=== PATIENT | male | born 1950 | race Caucasian/White ===

== ENCOUNTER 2017-04-08 11:29 | Inpatient (IN) | payer OTHER ==
[2017-04-07 11:06] VITALS: BMI 27.1
--- NOTE | 2017-04-08 09:23 | HP ---
[facility] - Past Medical History Allergies/Adverse Reactions: Allergies Allergy/AdvReac Type Severity Reaction Status Date / Time No Known Drug Allergies Allergy Verified 04/08/17 11:55 - Current Medications Current Medications: Home Medications Medication Instructions Recorded Losartan 50Mg/Hctz 12.5MG [Hyzaar 2 tab PO DAILY 03/06/17 -] Oxycodone HCl/Acetaminophen 1 - 2 tab PO Q6H #60 tab MDD 6 04/08/17 [Percocet 5-325 mg Tablet -] [facility] Physical Exam - Physical Examination Extremities: Other
--- NOTE | 2017-04-08 09:25 | OP ---
Operative Note - Note: Estimated Blood Loss (mls): 0
--- NOTE | 2017-04-08 17:29 | HP ---
History & Physical Update - History History: No Change - Physical Physical: No Change - Assessment Assessment: No Change - Plan Plan: No Change
[2017-04-08] MEDS ORDERED: PROPOFOL 20 ML ONE ×2 (17:42)
[2017-04-08] MEDS ORDERED: ROCURONIUM BROMIDE 50 MG/5 ML VIAL ONE ×2 (17:42→19:56)
[2017-04-08] MEDS ORDERED: ERTAPENEM SODIUM 1 GM in SODIUM CHLORIDE 50 ML IVPB ONE (17:43)
[2017-04-08] MEDS ORDERED: LACTATED RINGERS SOLUTION 1,000 ML IV SCH ×2 (17:45→21:45)
[2017-04-08] MEDS ORDERED: HYDROmorphone *PCA* 10MG/50ML DISP.SYRIN PCA SCH (18:00)
[2017-04-08] MEDS ORDERED: DESFLURANE GAS 240 ML BOTTLE IH ONE (18:14)
[2017-04-08] MEDS ORDERED: LIDOCAINE HCL/PF 2% SDV 5ML VIAL ONE (18:41)
[2017-04-08] MEDS ORDERED: ceFAZolin SODIUM 1 GM VIAL IVPB ONE (18:57)
[2017-04-08] MEDS ORDERED: BUPIVACAINE HCL/PF 0.5% (5MG/ML) 10 ML VIAL IJ ONE (19:03)
[2017-04-08] MEDS ORDERED: ceFAZolin SODIUM 1 GM VIAL ONE (19:10)
[2017-04-08] MEDS ORDERED: MIDAZOLAM HCL 2 MG/2 ML SINGLE DOSE VIAL ONE (19:10)
[2017-04-08] MEDS ORDERED: NEOSTIGMINE METHYLSULFATE 0.5 MG/ML - 10 ML MDV ONE (20:33)
[2017-04-08] MEDS ORDERED: GLYCOPYRROLATE 0.2 MG/1 ML VIAL ONE ×2 (20:34→20:37)
[2017-04-08] MEDS ORDERED: KETOROLAC TROMETHAMINE 30 MG/1 ML VIAL ONE (21:10)
--- NOTE | 2017-04-08 21:40 | OP ---
Operative Note - Note: Operative Date: 04/08/17 Pre-Operative Diagnosis: incisional hernia Operation: robotic assisted laparoscopic incisional hernia repair with mesh Post-Operative Diagnosis: Same as Pre-op Surgeon: Qasim Gudino Manufacturing Analyst: Teri Hussein Anesthesiologist/REINSPECTOR: Adolfo Guthrie Anesthesia: General Estimated Blood Loss (mls): 5 Fluid Volume Replaced (mls): 2,700 Operative Report Dictated: Yes
--- NOTE | 2017-04-08 21:43 | SURG ---
Surgery Crematory Operator Note Crematory Operator: Teri Hussein PA-C Date of Service: 04/08/17 Diagnosis: incisional hernia Procedure: robotic assisted laparoscopic incisional hernia repair with mesh I was present for the entirety of the operative procedure. For further detail, please refer to operative report. Visit type - Case Type Case Type: Scheduled Admission - New patient This patient is new to me today: Yes Date on this admission: 04/08/17
[2017-04-08] MEDS ORDERED: ONDANSETRON 4 MG/2 ML VIAL IVPUSH PRN (21:44)
[2017-04-08] MEDS ORDERED: PROMETHAZINE HCL 25 MG/1 ML VIAL IVPUSH PRN (21:44)
[2017-04-08] MEDS ORDERED: ACETAMINOPHEN 1000 MG/100 ML VIAL (NON FORMULARY) IVPB PRN (21:45)
[2017-04-08] MEDS ORDERED: ACETAMINOPHEN INJECTION 100 ML IVPB ONE (22:08)
[2017-04-09] MEDS: oxyCODONE HCL 5 MG TABLET PO PRN ×2 (00:29→08:58)
[2017-04-09] MEDS ORDERED: ENOXAPARIN NA (PORCINE) 40 MG/0.4 ML DISP.SYRIN SQ SCH (04:00)
--- NOTE | 2017-04-09 08:45 | PN ---
Progress Note (short form) - Note Progress Note: Patient seen and examined. Patient states he has a small amount of abdominal pain. He is tolerating his diet, denies fever, chills, nausea, vomiting. Last Vital Signs Temp Pulse Resp BP Pulse Ox 98.6 F 77 20 135/85 99 04/09/17 05:42 04/09/17 05:42 04/09/17 05:42 04/09/17 05:42 04/08/17 22:35 Exam: Gen: NAD, pleasant and cooperative Neuro: Alert and oriented Cardio: RRR Resp: CTA Abd: Soft, nondistended, mild incisional tenderness, incisions c/d/i, abdominal binder in place LE: soft, calves nontender Skin: warm, dry POD#1 s/p robotic assisted laparoscopic incisional hernia repair with mesh Regular diet, pain control with oral pain medications Patient to be discharged home, pain Rx sent to pharmacy, pt to follow-up for post-op appointment with Dr. Gudino
[2017-04-09 09:11] VITALS: BP 126/83; TEMP 98
--- NOTE | 2017-04-09 10:50 | PN ---
Progress Note (short form) - Note Progress Note: Post op day #1.S/P Robotic laproscopic inguinal hernia repair under GA uneventful.Patient stable.No any anesthesia related problem.Patient DC from the anesthesia care.
[2017-04-09 14:03] VITALS: PULSE 77
--- NOTE | 2017-04-11 13:39 | OP ---
DATE OF OPERATION: 04/08/2017 PROCEDURE: Robotic-assisted laparoscopic lysis of adhesions and multiple incisional hernias repaired with mesh. PREOPERATIVE DIAGNOSIS: Incisional hernias. POSTOPERATIVE DIAGNOSIS: Multiple incisional hernias and intraabdominal adhesions. SURGEON: Qasim Gudino MD MANAGER PROCESS IMPROVEMENT: ANA Jacobson ANESTHESIA: General endotracheal. FINDINGS ON PROCEDURE: This is a 67-year-old male who presents with midline abdominal bulges following surgery for diverticular disease in year 1999. On physical examination, patient has a 4-cm bulge at the superior portion of the midline scar at the gastric region. Also, has some questionable defect at the umbilicus at the level of the midline scar. So, patient was advised elective incision hernia repair, and consent was obtained after discussing the risks, benefits, and alternatives of the procedure. DESCRIPTION OF PROCEDURE: Patient was brought to the operating room and placed in supine position. General endotracheal anesthesia was administered. A roll was placed in the patients left flank. The abdomen was prepped and draped in the usual sterile fashion. Using the Veress needle technique, the peritoneal cavity was entered via an 8- mm left subcostal incision. Pneumoperitoneum was then established. This was followed by insertion of a 3D laparoscope, and the peritoneal cavity was carefully inspected. It was noted to be free of inadvertent injury. Note was made of multiple adhesions of the omentum, the small bowel through the previous midline laparotomy wound. Two 8-mm ports were inserted at the left flank posterior to the anterior axillary line 7 mm away from each other, one at the level of the umbilicus and one at the left lower quadrant under direct vision. Afterwards, the target organ was set and the robotic arms were docked. A fenestrated bipolar was inserted at the left lower quadrant port, and the EndoWrist anahy was inserted at the left lower quadrant at the left upper quadrant port. This was connected to monopolar cautery. The undersigned then scrubbed out to commence the consult part of the procedure. The omental adhesions as well as the small bowel lesions of the posterior abdominal wall were taken down sharply using the EndoWrist anahy. After this was taken down, multiple defects ranging from 2 cm to 4 cm in size was noted, the largest being at the umbilicus. After taking down the adhesions, the defects were apposed with continuous V-Loc No. 1 non-absorbable suture. This was followed by deployment of intraperitoneal only mesh using Ventralight ST 6 x 4 inch mesh. The Ventralight ST was anchored to the posterior abdominal wall with continuous V-Loc 2-0 absorbable sutures. After this was completed and the repair was deemed satisfactory, the pneumoperitoneum was evacuated and the ports were removed. The wounds were closed with subcuticular Biosyn 4-0 sutures reinforced with Dermabond. The patient was successfully extubated and transferred to the post-anesthesia care unit in satisfactory condition. ESTIMATED BLOOD LOSS: About 3 mL. WOUND CLASS: Clean. The patient received 2 g of Ancef prior to the start of the procedure. Zee [id number] MTDD
== END 2017-04-09 14:23 | disposition home or self-care (01) | DRG 355 ==
LOC: JASU-SURG 11:29 → JSAMEDAYSX 17:36 → J6S 23:12
PROVIDERS: ADMIT Surgery; ATTEND Surgery
PROC: 3E0M05Z Introduction of Adhesion Barrier into Peritoneal Cavity, Open Approach (ICD-10-PCS; 2017-04-08)
PROC: 8E0W4CZ Robotic Assisted Procedure of Trunk Region, Percutaneous Endoscopic Approach (ICD-10-PCS; 2017-04-08)
PROC: 0WUF4JZ Supplement Abdominal Wall with Synthetic Substitute, Percutaneous Endoscopic Approach (ICD-10-PCS; principal; 2017-04-08 13:45)
DX: K43.2 Incisional hernia without obstruction or gangrene (principal); K66.0 Peritoneal adhesions (postprocedural) (postinfection)
CPT/HCPCS: 94760

== ENCOUNTER 2017-04-11 00:37 | Inpatient (IN) | payer OTHER ==
[2017-04-11 01:22] VITALS: BMI 25.0
[2017-04-11 02:33] LABS: BASOPHIL 0.5 % (0-2.0); EOSINOPHIL 13.3 % (0-4.5); MCH 26.2 pg (25.7-33.7); MCHC 32.4 g/dl (32.0-35.9); MEAN PLT VOLUME 8.5 fl (7.5-11.1); NEUTROPHILS 65.3 % (42.8-82.8); PLATELET COUNT 232 K/MM3 (134-434); RDW 17.3 % (11.9-15.9); WHITE BLOOD COUNT 6.9 K/mm3 (4.0-10.0)
[2017-04-11 02:48] LABS: INR 1.09 (0.82-1.09)
[2017-04-11 02:50] LABS: ACTIVATED PTT 29.2 SECONDS (26.9-34.4)
[2017-04-11 02:55] LABS: ALBUMIN 3.8 g/dl (3.4-5.0); ANION GAP 9 (8-16); BILIRUBIN,TOTAL 0.7 mg/dL (0.2-1.0); CALCIUM 8.8 mg/dL (8.5-10.1); CO2 29 mmol/L (21-32); CREATININE 0.9 mg/dL (0.7-1.3); GLUCOSE,RANDOM 116 mg/dL (74-106); SGPT/ALT 18 U/L (12-78); TOT PROT 7.5 g/dl (6.4-8.2)
[2017-04-11] MEDS ORDERED: ASPIRIN 81 MG CHEWABLE TABLETS PO ONE (02:56)
[2017-04-11] MEDS ORDERED: NITROGLYCERIN SUBLINGUAL 1/150 0.4 MG TAB SL ONE (02:56)
[2017-04-11] MEDS ORDERED: SODIUM CHLORIDE 1,000 ML IV STA (02:56)
--- NOTE | 2017-04-11 02:56 | PDOC ---
History of Present Illness - General History Source: Patient Exam Limitations: No Limitations - History of Present Illness Initial Comments: 04/11/17 03:00 The patient is a 67 year old male with a significant past medical history of HTN and asthma who presents to the ED with complaints of chest pain since earlier today. The patient comes into the ED s/p hernia repair on Thursday. He stayed one night in the hospital and was discharged on with Losartan and percocet. Patient reports a sudden onset of left sided sharp chest pain radiating to his left arm. He also reports dizziness, blurry vision, headache and decreased urinary output associated with present symptoms. Surgical hx: Colon resection (several years ago) Family hx: Diabetes, HTN <Erica Plummer - Last Filed: 04/11/17 02:59> - General History Source: Patient Exam Limitations: No Limitations <Cade Mcmullen - Last Filed: 04/11/17 06:45> <Brooke Mascorro - Last Filed: 04/11/17 10:40> <Mame Reece - Last Filed: 04/11/17 13:21> - General Chief Complaint: Lightheaded Stated Complaint: PAIN/DIZZINESS Time Seen by Provider: 04/11/17 01:52 Past History <Erica Plummer - Last Filed: 04/11/17 02:59> - Past Medical History Anemia: No Asthma: No Cancer: No Cardiac Disorders: No CVA: No COPD: No CHF: No Dementia: No Diabetes: No GI Disorders: No Disorders: No HTN: Yes ('SOMETIMES") Hypercholesterolemia: No Liver Disease: No Seizures: No Thyroid Disease: No - Surgical History Abdominal Surgery: Yes (COLON SURGERY 1999 (DIVERTICULOSIS)) - Psycho/Social/Smoking Cessation Hx Suicidal Ideation: No Smoking History: Never smoked Have you smoked in the past 12 months: No Information on smoking cessation initiated: No Hx Alcohol Use: No Drug/Substance Use Hx: No Substance Use Type: Alcohol Hx Substance Use Treatment: No <Cade Mcmullen - Last Filed: 04/11/17 06:45> <Brooke Mascorro - Last Filed: 04/11/17 10:40> <Mame Reece - Last Filed: 04/11/17 13:21> - Past Medical History Allergies/Adverse Reactions: Allergies Allergy/AdvReac Type Severity Reaction Status Date / Time No Known Drug Allergies Allergy Verified 04/11/17 01:20 Home Medications: Ambulatory Orders Losartan 50Mg/Hctz 12.5MG [Hyzaar -] 2 tab PO DAILY 03/06/17 Oxycodone HCl/Acetaminophen [Percocet 5-325 mg Tablet -] 1 - 2 tab PO Q6H #60 tab MDD 6 04/08/17 Review of Systems - Review of Systems Able to Perform ROS?: Yes Comments:: 04/11/17 03:00 GENERAL/CONSTITUTIONAL: No fever or chills. No weakness. HEAD, EYES, EARS, NOSE AND THROAT: No change in vision. No ear pain or discharge. No sore throat. CARDIOVASCULAR: + chest pain No shortness of breath. RESPIRATORY: No cough, wheezing, or hemoptysis. GASTROINTESTINAL: No nausea, vomiting, diarrhea or constipation. GENITOURINARY: + decreased urinary output. No dysuria, frequency. MUSCULOSKELETAL: No joint or muscle swelling or pain. No neck or back pain. SKIN: No rash NEUROLOGIC: + headache, dizziness, blurry vision. No vertigo, loss of consciousness, or change in strength/sensation. ENDOCRINE: No increased thirst. No abnormal weight change. HEMATOLOGIC/LYMPHATIC: No anemia, easy bleeding, or history of blood clots. ALLERGIC/IMMUNOLOGIC: No hives or skin allergy. All Other Systems: Reviewed and Negative <Erica Plummer - Last Filed: 04/11/17 02:59> *Physical Exam - Vital Signs Last Vital Signs Temp Pulse Resp BP Pulse Ox 98.6 F 116 H 20 175/117 96 04/11/17 01:20 04/11/17 01:20 04/11/17 01:20 04/11/17 01:20 04/11/17 01:20 - Physical Exam Comments: 04/11/17 03:00 GENERAL: Awake, alert, and fully oriented, in no acute distress HEAD: No signs of trauma EYES: PERRLA, EOMI, sclera anicteric, conjunctiva clear ENT: Auricles normal inspection, hearing grossly normal, nares patent, oropharynx clear without exudates. Moist mucosa NECK: Normal ROM, supple, no lymphadenopathy, JVD, or masses LUNGS: Breath sounds equal, clear to auscultation bilaterally. No wheezes, and no crackles HEART: Regular rate and rhythm, normal S1 and S2, no murmurs, rubs or gallops ABDOMEN: Soft, nontender, normoactive bowel sounds. No guarding, no rebound. No masses EXTREMITIES: Normal range of motion, no edema. No clubbing or cyanosis. No cords, erythema, or tenderness NEUROLOGICAL: Normal speech SKIN: Warm, Dry, normal turgor, no rashes or lesions noted. <Erica Plummer - Last Filed: 04/11/17 02:59> - Vital Signs Last Vital Signs Temp Pulse Resp BP Pulse Ox 98.6 F 116 H 20 175/117 96 04/11/17 01:20 04/11/17 01:20 04/11/17 01:20 04/11/17 01:20 04/11/17 01:20 <Cade Mcmullen - Last Filed: 04/11/17 06:45> - Vital Signs Last Vital Signs Temp Pulse Resp BP Pulse Ox 98.6 F 86 18 154/114 100 04/11/17 01:20 04/11/17 08:11 04/11/17 08:11 04/11/17 08:11 04/11/17 08:11 <Brooke Mascorro - Last Filed: 04/11/17 10:40> - Vital Signs Last Vital Signs Temp Pulse Resp BP Pulse Ox 98.6 F 86 18 154/114 100 04/11/17 01:20 04/11/17 08:11 04/11/17 08:11 04/11/17 08:11 04/11/17 08:11 <Mame Reece - Last Filed: 04/11/17 13:21> Heart Score/ECG Review #1 ECG reviewed & interpreted by me at: 02:50 04/11/17 03:35 NSR 90, left axis deviation, no std/adan, QTC 437 msec <Cade Mcmullen - Last Filed: 04/11/17 06:45> ED Treatment Course - LABORATORY CBC & Chemistry Diagram: 04/11/17 02:19 04/11/17 02:19 - ADDITIONAL ORDERS Additional order review: 04/11/17 02:19 RBC 4.86 MCV 81.0 MCHC 32.4 RDW 17.3 H MPV 8.5 Neutrophils % 65.3 Lymphocytes % 13.0 Monocytes % 7.9 Eosinophils % 13.3 H Basophils % 0.5 <Erica Plummer - Last Filed: 04/11/17 02:59> - LABORATORY CBC & Chemistry Diagram: 04/11/17 02:19 04/11/17 02:19 - ADDITIONAL ORDERS Additional order review: 04/11/17 02:19 RBC 4.86 MCV 81.0 MCHC 32.4 RDW 17.3 H MPV 8.5 Neutrophils % 65.3 Lymphocytes % 13.0 Monocytes % 7.9 Eosinophils % 13.3 H Basophils % 0.5 - RADIOLOGY Radiology Studies Ordered: Category Date Time Status CHEST X-RAY PORTABLE* [RAD] Stat Radiology 04/11/17 02:25 Ordered <Cade Mcmullen - Last Filed: 04/11/17 06:45> - LABORATORY CBC & Chemistry Diagram: 04/11/17 02:19 04/11/17 02:19 - ADDITIONAL ORDERS Additional order review: Laboratory Results 04/11/17 04/11/17 04/11/17 02:19 02:19 02:19 INR 1.09 PTT (Actin FS) 29.2 Sodium 136 Potassium 3.7 Chloride 98 Carbon Dioxide 29 Anion Gap 9 BUN 19 H Creatinine 0.9 Creat Clearance w eGFR > 60 Random Glucose 116 H Calcium 8.8 Total Bilirubin 0.7 AST 19 ALT 18 Alkaline Phosphatase 59 Creatine Kinase 191 Creatine Kinase Index CK-MB (CK-2) < 1.000 CK-MB (CK-2) Rel Index Cancelled Troponin I < 0.02 Total Protein 7.5 Albumin 3.8 04/11/17 02:19 RBC 4.86 MCV 81.0 MCHC 32.4 RDW 17.3 H MPV 8.5 Neutrophils % 65.3 Lymphocytes % 13.0 Monocytes % 7.9 Eosinophils % 13.3 H Basophils % 0.5 - Medications Given in the ED: ED Medications Discontinued Medications Generic Name Dose Route Start Last Admin Trade Name Freq PRN Reason Stop Dose Admin Aspirin 324 mg 04/11/17 02:56 04/11/17 03:05 Asa - PO 04/11/17 02:57 324 mg ONCE ONE Administration Sodium Chloride 1,000 mls @ 1,000 mls/hr 04/11/17 02:56 04/11/17 03:06 Normal Saline - IV 04/11/17 03:55 1,000 mls/hr ASDIR STA Administration Ketorolac Tromethamine 30 mg 04/11/17 03:57 04/11/17 04:18 Toradol Injection - IVPUSH 04/11/17 03:58 30 mg ONCE ONE Administration Nitroglycerin 0.4 mg 04/11/17 02:56 04/11/17 03:05 Nitrostat - SL 04/11/17 02:57 0.4 mg ONCE ONE Administration <Brooke Mascorro - Last Filed: 04/11/17 10:40> - LABORATORY CBC & Chemistry Diagram: 04/11/17 02:19 04/11/17 02:19 - ADDITIONAL ORDERS Additional order review: Laboratory Results 04/11/17 04/11/17 04/11/17 02:19 02:19 02:19 INR 1.09 PTT (Actin FS) 29.2 Sodium 136 Potassium 3.7 Chloride 98 Carbon Dioxide 29 Anion Gap 9 BUN 19 H Creatinine 0.9 Creat Clearance w eGFR > 60 Random Glucose 116 H Calcium 8.8 Total Bilirubin 0.7 AST 19 ALT 18 Alkaline Phosphatase 59 Creatine Kinase 191 Creatine Kinase Index CK-MB (CK-2) < 1.000 CK-MB (CK-2) Rel Index Cancelled Troponin I < 0.02 Total Protein 7.5 Albumin 3.8 04/11/17 02:19 RBC 4.86 MCV 81.0 MCHC 32.4 RDW 17.3 H MPV 8.5 Neutrophils % 65.3 Lymphocytes % 13.0 Monocytes % 7.9 Eosinophils % 13.3 H Basophils % 0.5 - Medications Given in the ED: ED Medications Discontinued Medications Generic Name Dose Route Start Last Admin Trade Name Freq PRN Reason Stop Dose Admin Aspirin 324 mg 04/11/17 02:56 04/11/17 03:05 Asa - PO 04/11/17 02:57 324 mg ONCE ONE Administration Sodium Chloride 1,000 mls @ 1,000 mls/hr 04/11/17 02:56 04/11/17 03:06 Normal Saline - IV 04/11/17 03:55 1,000 mls/hr ASDIR STA Administration Ketorolac Tromethamine 30 mg 04/11/17 03:57 04/11/17 04:18 Toradol Injection - IVPUSH 04/11/17 03:58 30 mg ONCE ONE Administration Nitroglycerin 0.4 mg 04/11/17 02:56 04/11/17 03:05 Nitrostat - SL 04/11/17 02:57 0.4 mg ONCE ONE Administration <Mame Reece - Last Filed: 04/11/17 13:21> Medical Decision Making - Medical Decision Making 04/11/17 03:36 A portion of this note was documented by scribe services under my direction. I have reviewed the details of the note, within reason, and agree with the documentation with the following case summary and management plan written by me. Patient treated in the ED. Nursing notes are reviewed and incorporated into the medical decision-making. Vital signs reviewed. Peripheral IV access obtained by the nurse, laboratory studies are drawn and sent, reviewed and interpreted by myself. Vital Signs Temp Pulse Resp BP Pulse Ox 98.6 F 116 H 20 175/117 96 04/11/17 01:20 04/11/17 01:20 04/11/17 01:20 04/11/17 01:20 04/11/17 01:20 67 year old male with past medical history of HTN presents to the emergency department for chest pain. The patient recently had an abdominal hernia repair with mesh placement several days ago with no reported complications. Patient reported waking up with left-sided cramping pressure left-sided chest pain with radiation to left arm and associated shortness of breath. Denies nausea, vomiting, diaphoresis. States that the component is somewhat pleuritic. Patient reports that he believed he had a stress test in preparation for his surgery which he thinks is negative. Patient follows Dr. Marlon Yang. We'll need to rule out myocardial infarction. Patient was given aspirin nitroglycerin with minimal relief. Initial troponin is negative patient is awaiting a CAT scan the chest to rule out PE. Patient continue chest pain and should be considered for potential admission to the hospital further evaluation. <Cade Mcmullen - Last Filed: 04/11/17 06:45> - Medical Decision Making 04/11/17 08:[address] Muro. 04/11/17 09:[address] Muro 04/11/17 09:[address] Muro to her mobile phone. Left voicemail. 04/11/17 10:[address] Muro 04/11/17 10:[address] Muro. <Brooke Mascorro - Last Filed: 04/11/17 10:40> - Medical Decision Making 04/11/17 10:53 Had some technical difficulty reaching Dr. Muro through the service, however, we have now discussed case. We will admit to tele for further workup of the chest pain, as he is still having it intermittently. PE study was negative. <Mame Reece - Last Filed: 04/11/17 13:21> *DC/Admit/Observation/Transfer - Attestations Scribe Attestion: 04/11/17 03:00 Documentation prepared by Erica Plummer, acting as medical language specialist for Cade Mcmullen MD <Erica Plummer - Last Filed: 04/11/17 02:59> <Cade Mcmullen - Last Filed: 04/11/17 06:45> <Brooke Mascorro - Last Filed: 04/11/17 10:40> - Discharge Dispostion Admit: Yes <Mame Reece - Last Filed: 04/11/17 13:21> Diagnosis at time of Disposition: Chest pain Qualifiers: Chest pain type: unspecified Qualified Code(s): R07.9 - Chest pain, unspecified - Discharge Dispostion Condition at time of disposition: Stable - Referrals
[2017-04-11 02:58] LABS: ALK PHOS 59 U/L (45-117); TROPONIN I < 0.02 ng/ml (0.00-0.05)
[2017-04-11 03:02] LABS: SGOT/AST 19 U/L (15-37)
[2017-04-11] MEDS ORDERED: ASPIRIN 81 MG CHEWABLE TABLETS ONE (03:02)
[2017-04-11] MEDS ORDERED: NITROGLYCERIN SUBLINGUAL 1/150 0.4 MG TAB ONE (03:03)
[2017-04-11] MEDS ORDERED: KETOROLAC TROMETHAMINE 30 MG/1 ML VIAL IVPUSH ONE (03:57)
[2017-04-11] MEDS ORDERED: KETOROLAC TROMETHAMINE 30 MG/1 ML VIAL ONE (04:11)
[2017-04-11] MEDS ORDERED: OXYCODONE/APAP 5/325MG COMBO TABLET PO ONE (12:14)
[2017-04-11] MEDS ORDERED: OXYCODONE/APAP 5/325MG COMBO TABLET ONE (12:41)
[2017-04-11] MEDS: LOSARTAN 50MG/HCTZ 12.5MG 1 TAB (FP) PO SCH ×2 (21:19→21:22)
[2017-04-11 22:11] LABS: TROPONIN I < 0.02 ng/ml (0.00-0.05)
[2017-04-11] MEDS: HEPARIN NA (PORCINE) 5,000 UNITS/ML 1ML VIAL SQ SCH (22:11)
[2017-04-11] MEDS: PANTOPRAZOLE 40 MG TABLET (FP) PO SCH (22:11)
--- NOTE | 2017-04-11 23:41 | HP ---
Admitting History and Physical - Smoking History Smoking history: Never smoked Have you smoked in the past 12 months: No - Alcohol/Substance Use Hx Alcohol Use: No Home Medications - Allergies Allergies/Adverse Reactions: Allergies Allergy/AdvReac Type Severity Reaction Status Date / Time No Known Drug Allergies Allergy Verified 04/11/17 01:20 - Home Medications Home Medications: Ambulatory Orders Losartan 50Mg/Hctz 12.5MG [Hyzaar -] 2 tab PO DAILY 03/06/17 Oxycodone HCl/Acetaminophen [Percocet 5-325 mg Tablet -] 1 - 2 tab PO Q6H #60 tab MDD 6 04/08/17 Physical Examination Vital Signs: Vital Signs Temperature 98.7 F 04/11/17 17:02 Pulse Rate 66 04/11/17 17:02 Respiratory Rate 20 04/11/17 17:02 Blood Pressure 132/77 04/11/17 17:02 O2 Sat by Pulse Oximetry (%) 100 04/11/17 17:02
[2017-04-12 07:09] LABS: BASOPHIL 0.4 % (0-2.0); EOSINOPHIL 19.1 % (0-4.5); MCH 26.9 pg (25.7-33.7); MEAN CELL VOLUME 81.7 fl (80-96); MEAN PLT VOLUME 8.5 fl (7.5-11.1); NEUTROPHILS 63.3 % (42.8-82.8); RDW 17.2 % (11.9-15.9); WHITE BLOOD COUNT 6.9 K/mm3 (4.0-10.0)
--- NOTE | 2017-04-12 07:17 | CON.CARD ---
Consult Consult Specialty:: Cardiology /dr. Navarro - History of Present Illness History of Present Illness: The patient is a 67 year old male with a significant past medical history of HTN and asthma who presents to the ED with complaints of chest pain since earlier today. The patient comes into the ED s/p hernia repair on Thursday. He stayed one night in the hospital and was discharged on with Losartan and percocet. Patient reports a sudden onset of left sided sharp chest pain radiating to his left arm. He also reports dizziness, blurry vision, headache and decreased urinary output associated with present symptoms. Surgical hx: Colon resection (several years ago) Family hx: Diabetes, HTN - History Source History Provided By: Patient, Medical Record - Past Medical History Cardio/Vascular: Yes: HTN Pulmonary: Yes: Asthma - Alcohol/Substance Use Hx Alcohol Use: No - Smoking History Smoking history: Never smoked Have you smoked in the past 12 months: No Home Medications - Allergies Allergies/Adverse Reactions: Allergies Allergy/AdvReac Type Severity Reaction Status Date / Time No Known Drug Allergies Allergy Verified 04/11/17 01:20 - Home Medications Home Medications: Ambulatory Orders Losartan 50Mg/Hctz 12.5MG [Hyzaar -] 2 tab PO DAILY 03/06/17 Oxycodone HCl/Acetaminophen [Percocet 5-325 mg Tablet -] 1 - 2 tab PO Q6H #60 tab MDD 6 04/08/17 Review of Systems - Review of Systems Constitutional: reports: No Symptoms Eyes: reports: No Symptoms HENT: reports: No Symptoms Neck: reports: No Symptoms Cardiovascular: reports: Chest Pain Gastrointestinal: reports: No Symptoms Genitourinary: reports: No Symptoms Breasts: reports: No Symptoms Reported Musculoskeletal: reports: No Symptoms Integumentary: reports: No Symptoms Neurological: reports: No Symptoms Endocrine: reports: No Symptoms Hematology/Lymphatic: reports: No Symptoms Psychiatric: reports: No Symptoms Vital Signs: Vital Signs Temperature 98.7 F 04/12/17 02:00 Pulse Rate 75 04/12/17 06:00 Respiratory Rate 20 04/12/17 06:00 Blood Pressure 127/95 04/12/17 06:00 O2 Sat by Pulse Oximetry (%) 100 04/11/17 17:02 Constitutional: Yes: Well Nourished, No Distress, Calm Eyes: Yes: WNL, Conjunctiva Clear, EOM Intact HENT: Yes: WNL, Atraumatic, Normocephalic Neck: Yes: WNL, Supple, Trachea Midline Respiratory: Yes: WNL, Regular, CTA Bilaterally Gastrointestinal: Yes: WNL, Normal Bowel Sounds Renal/: Yes: WNL Cardiovascular: Yes: WNL, Regular Rate and Rhythm Musculoskeletal: Yes: WNL Extremities: Yes: WNL Integumentary: Yes: WNL Neurological: Yes: WNL, Alert, Oriented ...Motor Strength: WNL Psychiatric: Yes: WNL, Alert, Oriented - Other Data Labs, Other Data: INR, PTT INR 1.09 (0.82-1.09) 04/11/17 02:19 Troponin, BNP 04/11/17 21:25 Troponin I < 0.02 Troponin, BNP 04/11/17 21:25 Troponin I < 0.02 Laboratory Tests 04/11/17 04/11/17 04/11/17 02:19 02:19 02:19 WBC 6.9 RBC 4.86 Hgb 12.7 Hct 39.3 MCV 81.0 MCH 26.2 MCHC 32.4 RDW 17.3 H Plt Count 232 MPV 8.5 Neutrophils % 65.3 Lymphocytes % 13.0 Monocytes % 7.9 Eosinophils % 13.3 H Basophils % 0.5 INR 1.09 PTT (Actin FS) 29.2 Sodium 136 Potassium 3.7 Chloride 98 Carbon Dioxide 29 Anion Gap 9 BUN 19 H Creatinine 0.9 Creat Clearance w eGFR > 60 Random Glucose 116 H Calcium 8.8 Total Bilirubin 0.7 AST 19 ALT 18 Alkaline Phosphatase 59 Creatine Kinase 191 Creatine Kinase Index CK-MB (CK-2) < 1.000 CK-MB (CK-2) Rel Index Troponin I < 0.02 Total Protein 7.5 Albumin 3.8 04/11/17 04/11/17 04/12/17 02:19 21:25 05:35 WBC 6.9 RBC 4.54 Hgb 12.2 Hct 37.1 MCV 81.7 MCH 26.9 MCHC 33.0 RDW 17.2 H Plt Count 157 D MPV 8.5 Neutrophils % 63.3 Lymphocytes % 9.2 D Monocytes % 8.0 Eosinophils % 19.1 H Basophils % 0.4 INR PTT (Actin FS) Sodium Potassium Chloride Carbon Dioxide Anion Gap BUN Creatinine Creat Clearance w eGFR Random Glucose Calcium Total Bilirubin AST ALT Alkaline Phosphatase Creatine Kinase 144 Creatine Kinase Index CK-MB (CK-2) CK-MB (CK-2) Rel Index Cancelled Troponin I < 0.02 Total Protein Albumin 04/12/17 05:35 WBC RBC Hgb Hct MCV MCH MCHC RDW Plt Count MPV Neutrophils % Lymphocytes % Monocytes % Eosinophils % Basophils % INR PTT (Actin FS) Sodium 138 Potassium 3.8 Chloride 101 Carbon Dioxide 26 Anion Gap 11 BUN 22 H Creatinine 1.0 Creat Clearance w eGFR > 60 Random Glucose 96 Calcium 8.4 L Total Bilirubin 0.7 AST 20 ALT 19 Alkaline Phosphatase 51 Creatine Kinase Creatine Kinase Index CK-MB (CK-2) CK-MB (CK-2) Rel Index Troponin I Total Protein 6.5 Albumin 3.3 L Imaging - Results Chest X-ray: Image Reviewed (no i/e) EKG: Image Reviewed (sr rep abn) Assessment/Plan Chest pain asthma plan r/o mi asa no bb due to asthma mibi st in am check echo and lipids
[2017-04-12 07:32] LABS: ALBUMIN 3.3 g/dl (3.4-5.0); ANION GAP 11 (8-16); CALCIUM 8.4 mg/dL (8.5-10.1); CO2 26 mmol/L (21-32); GLUCOSE,RANDOM 96 mg/dL (74-106); SGPT/ALT 19 U/L (12-78)
[2017-04-12 07:33] LABS: ALK PHOS 51 U/L (45-117); BILIRUBIN,TOTAL 0.7 mg/dL (0.2-1.0); TOT PROT 6.5 g/dl (6.4-8.2)
[2017-04-12 07:38] LABS: SGOT/AST 20 U/L (15-37)
[2017-04-12 09:44] LABS: PLATELET COUNT 157 K/MM3 (134-434)
[2017-04-12] MEDS ORDERED: PT OWN MED DRAWER 7, Y5N ONE (12:06)
[2017-04-12] MEDS: ASPIRIN COATED 81 MG TABLET.EC PO SCH (12:07)
[2017-04-12] MEDS: LOSARTAN 50MG/HCTZ 12.5MG 1 TAB (FP) PO SCH (12:07)
[2017-04-12] MEDS: HEPARIN NA (PORCINE) 5,000 UNITS/ML 1ML VIAL SQ SCH ×2 (12:08→22:11)
[2017-04-12] MEDS: PANTOPRAZOLE 40 MG TABLET (FP) PO SCH (12:08)
--- NOTE | 2017-04-12 13:32 | EKG ---
Test Reason : Blood Pressure : / mmHG Vent. Rate : 090 BPM Atrial Rate : 090 BPM P-R Int : 140 ms QRS Dur : 078 ms QT Int : 358 ms P-R-T Axes : 020 -54 002 degrees QTc Int : 437 ms NORMAL SINUS RHYTHM LEFT AXIS DEVIATION ABNORMAL ECG NO PREVIOUS ECGS AVAILABLE Confirmed by TU DERAS, SEDRICK ([id number]) on 04/12/2017 1:32:23 PM Referred By: Confirmed By:SEDRICK MAE MD
[2017-04-12 21:55] LABS: TROPONIN I < 0.02 ng/ml (0.00-0.05)
--- NOTE | 2017-04-12 22:30 | PN ---
Progress Note, Physician History of Present Illness: Pt has had intermittent chest pain today but is now chest pain free - Current Medication List Current Medications: Active Medications Aspirin (Ecotrin -) 81 mg PO DAILY [facility] Last Admin: 04/12/17 12:07 Dose: 81 mg HCTZ/Losartan Potassium (Hyzaar -) 2 tab PO DAILY [facility] Last Admin: 04/12/17 12:07 Dose: 2 tab Heparin Sodium (Porcine) (Heparin -) 5,000 unit SQ BID [facility] Last Admin: 04/12/17 22:11 Dose: 5,000 unit Pantoprazole Sodium (Protonix -) 40 mg PO DAILY [facility] Last Admin: 04/12/17 12:08 Dose: 40 mg - Objective Vital Signs: Vital Signs Temperature 99.0 F 04/12/17 20:56 Pulse Rate 76 04/12/17 20:56 Respiratory Rate 20 04/12/17 20:56 Blood Pressure 162/102 04/12/17 20:56 O2 Sat by Pulse Oximetry (%) 96 04/12/17 20:56 Constitutional: Yes: No Distress Eyes: Yes: WNL HENT: Yes: WNL Neck: Yes: WNL, Supple Cardiovascular: Yes: WNL, Regular Rate and Rhythm Respiratory: Yes: WNL, Regular, CTA Bilaterally Gastrointestinal: Yes: WNL, Normal Bowel Sounds, Soft Labs: CBC, BMP 04/12/17 05:35 04/12/17 05:35 INR, PTT INR 1.09 (0.82-1.09) 04/11/17 02:19 Problem List - Problems (1) Chest pain Assessment/Plan: Monitor on tele Cardio consult Serial cpk/troponin to r/o ACS Check echo/stress test Code(s): R07.9 - CHEST PAIN, UNSPECIFIED Qualifiers: Chest pain type: unspecified Qualified Code(s): R07.9 - Chest pain, unspecified (2) HTN (hypertension) Assessment/Plan: Cont antihyperttensive Code(s): I10 - ESSENTIAL (PRIMARY) HYPERTENSION
[2017-04-13 07:35] LABS: CHOLESTEROL 123 mg/dL (50-200); LDL CHOLESTEROL (ONLY SJRH) 55 mg/dL (5-100)
[2017-04-13] MEDS: LOSARTAN 50MG/HCTZ 12.5MG 1 TAB (FP) PO SCH ×2 (08:21→09:54)
[2017-04-13] MEDS: PANTOPRAZOLE 40 MG TABLET (FP) PO SCH (09:54)
[2017-04-13] MEDS: HEPARIN NA (PORCINE) 5,000 UNITS/ML 1ML VIAL SQ SCH (09:54)
[2017-04-13] MEDS: ASPIRIN COATED 81 MG TABLET.EC PO SCH (09:54)
--- NOTE | 2017-04-13 10:27 | PN ---
Progress Note, Physician History of Present Illness: seen and examined today in [facility]. no overnight events. no new complaints. - Current Medication List Current Medications: Active Medications Aspirin (Ecotrin -) 81 mg PO DAILY [facility] Last Admin: 04/13/17 09:54 Dose: 81 mg HCTZ/Losartan Potassium (Hyzaar -) 2 tab PO DAILY [facility] Last Admin: 04/13/17 09:54 Dose: Not Given Heparin Sodium (Porcine) (Heparin -) 5,000 unit SQ BID [facility] Last Admin: 04/13/17 09:54 Dose: 5,000 unit Pantoprazole Sodium (Protonix -) 40 mg PO DAILY [facility] Last Admin: 04/13/17 09:54 Dose: 40 mg - Objective Vital Signs: Vital Signs Temperature 97.8 F 04/13/17 02:17 Pulse Rate 80 04/13/17 06:00 Respiratory Rate 20 04/13/17 06:00 Blood Pressure 132/97 04/13/17 06:00 O2 Sat by Pulse Oximetry (%) 96 04/12/17 20:56 Constitutional: Yes: Well Nourished, No Distress, Calm Eyes: Yes: WNL, Conjunctiva Clear, EOM Intact, PERRL HENT: Yes: WNL, Atraumatic, Normocephalic Neck: Yes: WNL, Supple, Trachea Midline Cardiovascular: Yes: WNL, Regular Rate and Rhythm, S1, S2. No: Bradycardia, Tachycardia, Pulse Irregular, Bruit, JVD, Gallop, Murmur, Rub, S3, S4, Varicosities Respiratory: Yes: WNL, Regular, CTA Bilaterally. No: Rales, Rhonchi, Wheezes Gastrointestinal: Yes: WNL, Normal Bowel Sounds, Soft. No: Distention, Tenderness Musculoskeletal: Yes: WNL Extremities: Yes: WNL Edema: No Peripheral Pulses WNL: Yes Peripheral Pulses: Left Doralis Pedis: 2+, Right Dorsalis Pedis: 2+ Integumentary: Yes: WNL Neurological: Yes: WNL, Alert, Oriented, Cran Nerves II-XII Intact ...Motor Strength: WNL Psychiatric: Yes: WNL, Alert, Oriented Labs: CBC, BMP 04/12/17 05:35 04/12/17 05:35 INR, PTT INR 1.09 (0.82-1.09) 04/11/17 02:19 - ....Imaging Chest X-ray: Report Reviewed, Image Reviewed EKG: Report Reviewed, Image Reviewed Other: Report Reviewed, Image Reviewed (tele- nsr, frequent pvcs, occ V couplet , apcs) Assessment/Plan 67 year old man with a h/o HTN, hernia surgery last week, admitted with HTN and atypical chest pain. Chest pain- Pt had been seen recently for preop evaluation which included a nuclear stress test 02/2017 that showed normal perfusion, no ischemia, and normal LVEF and echo that showed normal LV function and no sig valvular abnl. -states that the chest pain he had was very mild, left sided/epigastric with no associated symptoms. -cardiac enzymes wnl -no ischemia on ekg and no sig arrhythmias on tele -will cancel stress test (low utility repeating within 1 month) -pt is acceptable for discharge home from a cardiac standpoint with a plan for close outpatient follow up this week HTN-variable -cont current Losartan/HCTZ 100/25mg daily -resume home amlodipine 5mg daily -close f/up in office this week for re-evaluation PVCs-frequent, asymptomatic -pt was planned for an event monitor as outpatient -outpatient f/up
[2017-04-13] MEDS ORDERED: amLODIPine BESYLATE 5 MG TABLET (FP) PO SCH (10:30)
[2017-04-13] MEDS ORDERED: amLODIPine BESYLATE 2.5 MG TABLET (FP) PO ONE (18:00)
[2017-04-13 18:21] VITALS: BP 152/98; PULSE 80; TEMP 98
== END 2017-04-13 21:36 | disposition home or self-care (01) | DRG 313 ==
LOC: JER 00:37 → JERBED 10:53 → OBSVTOIN 10:53 → J4W 16:40
PROVIDERS: ADMIT Internal Medicine; ATTEND Internal Medicine
DX: R07.89 Other chest pain (principal); I10 Essential (primary) hypertension
CPT/HCPCS: 36415; 71275-TC; 80053; 80061; 82550; 82553; 83721; 84484; 85025; 85610; 85730; 93005; 93010; 93306-TC; 99285-25; J1644